=== PATIENT | male | born 1995 | race African-American/Black ===

== ENCOUNTER 2017-02-10 11:57 | Emergency (ER) | payer SELFPAY ==
[~2017-02-10] VITALS: Ht 188 cm; Wt 85.0 kg
[2017-02-10 11:58] VITALS: Ht 188 cm; Wt 85.0 kg
[2017-02-10] MEDS ORDERED: IBUP-1542 PO (12:25)
[2017-02-10] MEDS ORDERED: HYDR-906 PO (12:25)
[2017-02-10] MEDS ORDERED: PEN500 PO (12:25)
[2017-02-10] MEDS ORDERED: HYDROCODONE/APAP (5/325) TAB PO ONE (12:30)
--- NOTE | 2017-02-10 12:30 | ERD ---
ER Documentation Chief Complaint Date/Time DATE: 02/10/17 TIME: 12:27 Chief Complaint RIGHT FACIAL SWELLING TODAY, TOOTH ACHE HPI 21-year-old male is here complaining of right cheek swelling that began today. He states yesterday he had some dental pain at that site but then today he woke up and that side of his cheek was very swollen and painful. He denies any fever. He has not yet seen a dentist. He is tolerating oral intake. There is no nausea vomiting or diarrhea. No cough. No recent dental procedure or trauma. ROS All systems reviewed and are negative except as per history of present illness. Medications Home Meds Active Scripts Penicillin V Potassium* (Penicillin V K*) 500 Mg Tab, 500 MG PO QID for 10 Days , TAB Prov:BELINDA CRAWLEY PA-C 02/10/17 Hydrocodone/Acetaminophen (Moore 5-325 Tablet) 1 Each Tablet, 1 TAB PO Q6H Y for PAIN, #20 TAB Prov:BELINDA CRAWLEY PA-C 02/10/17 Ibuprofen* (Ibuprofen*) 600 Mg Tablet, 600 MG PO Q6H Y for PAIN, #30 TAB Prov:BELINDA CRAWLEY PA-C 02/10/17 PMhx/Soc Medical and Surgical Hx: pt denies Surgical Hx History of Surgery: No Anesthesia Reaction: No Hx Neurological Disorder: No Hx Respiratory Disorders: Yes (asthma) Hx Cardiac Disorders: No Hx Psychiatric Problems: No Hx Miscellaneous Medical Probl: No Hx Alcohol Use: Yes (occassionally) Hx Substance Use: No Hx Tobacco Use: Yes (4cigs) Smoking Status: Current every day smoker FmHx Family History: No diabetes Physical Exam Vitals Vital Signs Date Time Temp Pulse Resp B/P Pulse Ox O2 Delivery O2 Flow Rate FiO2 02/10/17 11:58 98.1 89 18 126/75 99 Physical Exam General: well developed, well nourished, alert, nontoxic, no distress Head: normocephalic, atraumatic Eyes: PERRL, normal conjunctiva Neck: Supple, nontender, no lymphadenopathy, no midline tenderness Oropharynx: no tonsilar erythema or edema, uvula midline, no exudates, no kissing tonsils, significant swelling over the external right upper cheek with tenderness and some fluctuance, poor dentition, Respiratory: Clear to auscaultation bilaterally, speaks in full sentences, no use of accesory muscles or labored breathing, no rales, ronchi, or wheezing Cardiovascular: RRR, No murmurs Results 24 hrs Current Medications Medications (Trade) Dose Ordered Sig/Fabiana Route PRN Reason Start Time Stop Time Status Last Admin Dose Admin Acetaminophen/ Hydrocodone Bitart (Moore (5/325)) 1 tab ONCE ONCE PO 02/10/17 12:30 02/10/17 12:31 Procedures/MDM Patient presents with dental infection. He is afebrile and tolerating oral intake. Both myself and my supervising physician Dr. Bowling examined the patient and we agree there is most likely an abscess however we agree that he is suitable for outpatient management with close dental care follow-up. We told him that he needs to get his tooth pulled for definitive treatment of his symptoms. We did however place him on Penicillin VK and provided him with ibuprofen and Moore for pain control. He was given outpatient referral to dental clinic. Recommended this patient follow up with her primary care doctor within 48 hours or return to the emergency room for any worsening of symptoms. However this time I do believe there is suitable for outpatient management. I answered all their questions and they agreed with the plan and were discharged home. Departure Diagnosis: Primary Impression: Dental infection Condition: Stable Patient Instructions: Dental Pain Referrals: [facility] ([facility]) Additional Instructions: Call your primary care doctor TOMORROW for an appointment during the next 1-2 days.See the doctor sooner or return here if your condition worsens before your appointment time. Follow up with dentist in 24-28 hours BELINDA CRAWLEY PA-C Feb 10, 2017 12:30
== END 2017-02-10 13:01 | disposition home or self-care (01) ==
LOC: FTE 11:57
DX: K04.7 Periapical abscess without sinus (principal); J45.909 Unspecified asthma, uncomplicated; F17.210 Nicotine dependence, cigarettes, uncomplicated
CPT/HCPCS: 99284